=== PATIENT | female | born 1955 | race Caucasian/White ===

== ENCOUNTER → 2017-10-24 | Outpatient (CLI) | payer MEDICARE | END | disposition home or self-care (01) | LOC: PETCFH 13:29 | PROVIDERS: ATTEND Family Medicine | DX: C53.9 Malignant neoplasm of cervix uteri, unspecified (principal); R59.0 Localized enlarged lymph nodes; K76.89 Other specified diseases of liver | CPT/HCPCS: 78815; A9552 ==

== ENCOUNTER → 2017-11-08 | Outpatient (CLI) | payer MEDICARE | END | disposition home or self-care (01) | LOC: ROC 07:24 | PROVIDERS: ATTEND Radiology Radiation Oncology | DX: C53.9 Malignant neoplasm of cervix uteri, unspecified (principal); N95.0 Postmenopausal bleeding | CPT/HCPCS: 99214; G0463 ==

== ENCOUNTER → 2017-11-14 | Outpatient (CLI) | payer MEDICARE | END | disposition home or self-care (01) | LOC: CFH 16:00 | PROVIDERS: ATTEND Specialist | DX: R94.4 Abnormal results of kidney function studies (principal) | CPT/HCPCS: 76770 ==

== ENCOUNTER → 2017-11-15 | Outpatient (CLI) | payer MEDICARE ==
[~2017-11-15] MED LIST: DEXA4TAB66 PO; LIDOCAINE-MPF 2%, 2ML ONE; ONDA4TAB7 PO; TOLT4CAP12 PO
== END | disposition home or self-care (01) ==
LOC: RAD 11:20
PROVIDERS: ATTEND Specialist
DX: Z45.2 Encounter for adjustment and management of vascular access device (principal); C53.9 Malignant neoplasm of cervix uteri, unspecified; Z98.890 Other specified postprocedural states
CPT/HCPCS: 36569; 76937; 77001; C1751; J3490

== ENCOUNTER → 2017-11-27 | Outpatient (CLI) | payer MEDICARE ==
[~2017-11-27] MED LIST changes: +GADOBUTROL 7.5 MMOL/7.5 ML PFS ONE; -LIDOCAINE-MPF 2%, 2ML ONE
== END | disposition home or self-care (01) ==
LOC: RAD 11-12 14:19
PROVIDERS: ATTEND Radiology Radiation Oncology
DX: Z02.9 Encounter for administrative examinations, unspecified (principal)
CPT/HCPCS: A9585

== ENCOUNTER → 2017-12-12 | Outpatient (CLI) | payer MEDICARE ==
[~2017-12-12] MED LIST changes: -GADOBUTROL 7.5 MMOL/7.5 ML PFS ONE; +LOPE2CAP94 PO; +MORP10CA7 PO; +MORP15TA PO
[2017-12-12 15:33] LABS: ALANINE AMINOTRANSFERASE 46 U/L (12-78); ALBUMIN 3.4 g/dL (3.4-5.0); ANION GAP 8 mmol/L (5-15); CALCIUM 8.5 mg/dL (8.5-10.1); CHLORIDE 108 mmol/L (98-107); CREATININE 1.26 mg/dL (0.55-1.02)
[2017-12-12 15:36] LABS: ALKALINE PHOSPHATASE 60 U/L (45-117); BILIRUBIN,TOTAL 1.1 mg/dL (0.2-1.0); TOTAL PROTEIN 6.4 g/dL (6.4-8.2)
[2017-12-12 15:41] LABS: MEAN CORPUSCULAR HEMOGLOBIN 32.5 pg (27.0-34.8); MEAN CORPUSCULAR HGB CONC 35.5 g/dL (32.4-35.8); MEAN CORPUSCULAR VOLUME 91.5 fL (80-100); MEAN PLATELET VOLUME 7.6 fL (7.4-10.4); PLATELET COUNT 163 x10^3/uL (130-400); RED BLOOD COUNT 3.22 x10^6/uL (3.82-5.3); RED CELL DISTRIBUTION WIDTH 13.5 % (9.6-15.2)
[2017-12-12 15:48] LABS: INTERNATIONAL NORMALIZED RATIO 0.99 (0.93-1.1); PROTHROMBIN TIME 10.3 Seconds (9.6-11.5)
[2017-12-12 16:16] LABS: MD YES
[2017-12-12 16:23] LABS: BANDS%(MANUAL) 3 % (0-7); EOS#(MANUAL) 0.03 x10^3/uL (0.0-0.4); EOS% (MANUAL) 1 % (1-7); LYMPH#(MANUAL) 0.26 x10^3/uL (1-3.4); LYMPHS% (MANUAL) 8 % (22-44); MONOS% (MANUAL) 6 % (2-9); MYELOCYTES# (MANUAL) 0.03 x10^3/uL (0-0); MYELOCYTES% (MANUAL) 1 % (0-0); SEG#(MANUAL) 2.67 x10^3/uL (1.8-6.8); SEGS% (MANUAL) 81 % (42-75)
[2017-12-12 16:24] LABS: <RBC MORPHOLOGY> NORMAL
[2017-12-12 16:25] LABS: <PLATELET ESTIMATE> ADEQUATE; <PLT MORPHOLOGY> NORMAL PLT MORPH
== END | disposition home or self-care (01) ==
LOC: STAR 14:22
PROVIDERS: ATTEND Specialist
DX: Z01.818 Encounter for other preprocedural examination (principal); C53.9 Malignant neoplasm of cervix uteri, unspecified; Z87.891 Personal history of nicotine dependence
CPT/HCPCS: 36415; 80053; 85025; 85610; 85730; 93005

== ENCOUNTER 2017-12-16 09:14 | Day surgery (SDC) | payer MEDICARE ==
[2017-12-12 14:55] VITALS: BP 118/83
[~2017-12-16] VITALS: Ht 162.6 cm; Wt 72.2 kg
[2017-12-16] MEDS ORDERED: LACTATED RINGERS 1,000 ML IV SCH (09:57)
[2017-12-16] MEDS ORDERED: BUPIVACAINE/PF-EPI 0.5% 1:200K ONE (09:59)
[2017-12-16] MEDS ORDERED: ACETAMINOPHEN 500 MG TABLET PO ONE (10:00)
[2017-12-16] MEDS ORDERED: ONDANSETRON ODT 8 MG PO ONE (10:00)
[2017-12-16 10:01] VITALS: BP 118/83
[2017-12-16] MEDS ORDERED: ACETAMINOPHEN 500 MG TABLET ONE (10:08)
[2017-12-16] MEDS ORDERED: ONDANSETRON ODT 8 MG ONE (10:09)
[2017-12-16] MEDS ORDERED: hydrALAzine 20 MG/ML, 1ML IV PRN (11:30)
[2017-12-16] MEDS ORDERED: HYDROmorphone 1 MG/ML, 1ML IV PRN (11:30)
[2017-12-16] MEDS ORDERED: EPHEDRINE 50 MG/ML, 1ML IVPush PRN (11:30)
[2017-12-16] MEDS ORDERED: OXYcodone 5 MG/5 ML ORAL.SOL UDC PO PRN (11:30)
[2017-12-16] MEDS ORDERED: DIAZEPAM 5 MG/ML, 2ML IVPush PRN (11:30)
[2017-12-16] MEDS ORDERED: MIDAZOLAM 1 MG/ML, 2ML IV PRN (11:30)
[2017-12-16] MEDS ORDERED: DIPHENHYDRAMINE 50 MG/ML, 1ML IVPush PRN (11:30)
[2017-12-16] MEDS ORDERED: ALBUTEROL SULFATE 2.5 MG/3 ML NPPB PRN (11:30)
[2017-12-16] MEDS ORDERED: FENTANYL PF 100 MCG/2ML IV PRN (11:30)
[2017-12-16] MEDS ORDERED: LORazepam 2 MG/ML, 1ML IVPush PRN (11:30)
[2017-12-16] MEDS ORDERED: KETOROLAC 30 MG/1 ML IV PRN (11:30)
[2017-12-16] MEDS ORDERED: LABETALOL 5MG/ML, 20ML IV PRN (11:30)
[2017-12-16] MEDS ORDERED: MEPERIDINE/PF 25MG/0.5ML IVPush PRN (11:30)
[2017-12-16] MEDS ORDERED: METOPROLOL 1 MG/ML, 5ML IV PRN (11:30)
[2017-12-16] MEDS ORDERED: MORPHINE SULFATE 4 MG/ML, 1ML IVPush PRN (11:30)
[2017-12-16] MEDS ORDERED: PROCHLORPERAZINE 5 MG/ML, 2ML IV PRN (11:30)
[2017-12-16] MEDS ORDERED: PROPOFOL 10 MG/ML, 20ML ONE (15:53)
== END 2017-12-16 14:15 | disposition home or self-care (01) ==
LOC: OUT 09:14
PROVIDERS: ATTEND Specialist
DX: C53.9 Malignant neoplasm of cervix uteri, unspecified (principal); Z98.51 Tubal ligation status; Z98.890 Other specified postprocedural states; Z72.89 Other problems related to lifestyle; Z87.891 Personal history of nicotine dependence
CPT/HCPCS: 57156; J2250; J2704; J3010; J7120

== ENCOUNTER 2017-12-25 10:23 | Emergency (ER) | payer MEDICARE ==
[~2017-12-25] VITALS: Ht 165.1 cm; Wt 70.8 kg
[2017-12-25] MEDS ORDERED: SODIUM CHLORIDE 0.9% 1,000 ML IV ONE (10:54)
[2017-12-25] MEDS ORDERED: SODIUM CHLORIDE 0.9% 1,000ML IVBOLUS ONE ×2 (11:00→13:00)
[2017-12-25] MEDS ORDERED: SODIUM CHLORIDE FLUSH 10ML SYR IVF ONE (11:00)
[2017-12-25] MEDS ORDERED: ONDANSETRON 2MG/ML, 2ML IVPush ONE (11:00)
[2017-12-25] MEDS ORDERED: MORPHINE SULFATE 4 MG/ML, 1ML IVPush PRN (11:00)
[2017-12-25 11:18] LABS: BASOPHILS # (AUTO) 0.01 x10^3/uL (0-0.1); BASOPHILS % (AUTO) 0 % (0-1); EOSINOPHILS # (AUTO) 0.03 x10^3/uL (0-0.4); EOSINOPHILS % (AUTO) 1 % (1-7); LYMPHOCYTES # (AUTO) 0.39 x10^3/uL (1-3.4); LYMPHOCYTES % (AUTO) 11 % (22-44); MD NO; MEAN CORPUSCULAR HEMOGLOBIN 31.1 pg (27.0-34.8); MEAN CORPUSCULAR HGB CONC 34.4 g/dL (32.4-35.8); MEAN CORPUSCULAR VOLUME 90.3 fL (80-100); MEAN PLATELET VOLUME 7.6 fL (7.4-10.4); MONOCYTES # (AUTO) 0.25 x10^3/uL (0.2-0.8); MONOCYTES % (AUTO) 7 % (2-9); NEUTROPHILS # (AUTO) 2.89 x10^3/uL (1.8-6.8); NEUTROPHILS % (AUTO) 81 % (42-75); PLATELET COUNT 435 x10^3/uL (130-400); RED BLOOD COUNT 3.37 x10^6/uL (3.82-5.3); RED CELL DISTRIBUTION WIDTH 13.9 % (9.6-15.2)
[2017-12-25] MEDS ORDERED: ONDANSETRON 2MG/ML, 2ML ONE (11:21)
[2017-12-25] MEDS ORDERED: MORPHINE SULFATE 4 MG/ML, 1ML ONE (11:21)
[2017-12-25 11:29] LABS: ALANINE AMINOTRANSFERASE 38 U/L (12-78); ALBUMIN 3.1 g/dL (3.4-5.0); ANION GAP 11 mmol/L (5-15); CALCIUM 9.7 mg/dL (8.5-10.1); CHLORIDE 103 mmol/L (98-107)
[2017-12-25 11:32] LABS: ALKALINE PHOSPHATASE 77 U/L (45-117); BILIRUBIN,TOTAL 0.7 mg/dL (0.2-1.0); CREATININE 1.31 mg/dL (0.55-1.02); TOTAL PROTEIN 7.5 g/dL (6.4-8.2)
[2017-12-25 11:54] LABS: TROPONIN I < 0.015 ng/mL (0.000-0.045)
[2017-12-25] MEDS ORDERED: OMNIPAQUE 350 MG/ML, 100ML BOTTLE ONE (11:59)
[2017-12-25 12:21] VITALS: BP 123/100
[2017-12-25 13:20] LABS: MICROSCOPIC NOT IND
[2017-12-25 13:25] LABS: CULTURE INDICATED? NO
== END 2017-12-25 14:24 | disposition home or self-care (01) ==
LOC: ED 12:26
DX: E87.2 Acidosis (principal); C53.9 Malignant neoplasm of cervix uteri, unspecified; M54.5 Low back pain; Z51.0 Encounter for antineoplastic radiation therapy; K52.9 Noninfective gastroenteritis and colitis, unspecified; E86.0 Dehydration; E86.9 Volume depletion, unspecified; Z87.891 Personal history of nicotine dependence
CPT/HCPCS: 36415; 74177; 80053; 81003; 83605; 83690; 84484; 85025; 87040; 93005; 96361; 96374; 96375; 99285; J2405; J7030; Q9967

== ENCOUNTER → 2017-12-31 | Outpatient (CLI) | payer MEDICARE | END | disposition home or self-care (01) | LOC: ROC 07:07 | PROVIDERS: ATTEND Radiology Radiation Oncology | DX: Z02.9 Encounter for administrative examinations, unspecified (principal) ==

== ENCOUNTER 2018-02-16 09:09 | Inpatient (IN) | payer MEDICARE ==
[~2018-02-16] VITALS: Ht 162.6 cm; Wt 71.2 kg
[2018-02-16] MEDS ORDERED: SODIUM CHLORIDE FLUSH 10ML SYR IVF ONE (09:30)
[2018-02-16] MEDS ORDERED: HYDROmorphone 2 MG/ML, 1ML ONE (10:09)
[2018-02-16] MEDS ORDERED: DICYCLOMINE 10 MG/ML, 2ML ONE (10:09)
[2018-02-16 10:13] LABS: CLOSTRIDIUM DIFFICILE ANTIGEN NEGATIVE; CLOSTRIDIUM DIFFICILE TOXIN NEGATIVE (Negative)
[2018-02-16] MEDS: HYDROmorphone 2 MG/ML, 1ML IVPush PRN ×2 (10:17→10:51)
[2018-02-16 10:30] LABS: BASOPHILS # (AUTO) 0.03 x10^3/uL (0-0.1); BASOPHILS % (AUTO) 0 % (0-1); EOSINOPHILS # (AUTO) 0.14 x10^3/uL (0-0.4); EOSINOPHILS % (AUTO) 2 % (1-7); LYMPHOCYTES # (AUTO) 0.52 x10^3/uL (1-3.4); LYMPHOCYTES % (AUTO) 6 % (22-44); MD NO; MEAN CORPUSCULAR HEMOGLOBIN 31.8 pg (27.0-34.8); MEAN CORPUSCULAR HGB CONC 33.8 g/dL (32.4-35.8); MEAN CORPUSCULAR VOLUME 94.2 fL (80-100); MEAN PLATELET VOLUME 8.6 fL (7.4-10.4); MONOCYTES % (AUTO) 5 % (2-9); NEUTROPHILS # (AUTO) 7.03 x10^3/uL (1.8-6.8); NEUTROPHILS % (AUTO) 87 % (42-75); PLATELET COUNT 248 x10^3/uL (130-400); RED BLOOD COUNT 3.87 x10^6/uL (3.82-5.3); RED CELL DISTRIBUTION WIDTH 14.6 % (9.6-15.2)
[2018-02-16] MEDS ORDERED: DICYCLOMINE 10 MG/ML, 2ML IM ONE (10:30)
[2018-02-16 10:34] LABS: ALANINE AMINOTRANSFERASE 19 U/L (12-78); ALBUMIN 4.2 g/dL (3.4-5.0); ANION GAP 11 mmol/L (5-15); CALCIUM 9.9 mg/dL (8.5-10.1); CHLORIDE 106 mmol/L (98-107); CREATININE 1.26 mg/dL (0.55-1.02)
[2018-02-16 10:36] LABS: ALKALINE PHOSPHATASE 57 U/L (45-117); TOTAL PROTEIN 7.3 g/dL (6.4-8.2)
[2018-02-16 11:30] LABS: CRYPTOSPORIDIUM ANTIGEN Negative (Negative)
[2018-02-16] MEDS ORDERED: AMPICILLIN/SULBACTAM 3 GM in SODIUM CHLORIDE 0.9% 100 ML IV ONE (11:30)
[2018-02-16] MEDS ORDERED: HYDROmorphone 2 MG/ML, 1ML IVPush PRN (12:30)
[2018-02-16] MEDS ORDERED: METOCLOPRAMIDE 5 MG/ML, 2ML IVPush PRN (12:30)
[2018-02-16] MEDS ORDERED: LOPERAMIDE 2 MG CAPSULE PO PRN (12:30)
[2018-02-16] MEDS ORDERED: PROMETHAZINE 25 MG/ML, 1ML IM PRN (12:30)
[2018-02-16] MEDS: ENOXAPARIN 40 MG/0.4 ML SQ SCH (12:30)
[2018-02-16] MEDS ORDERED: ONDANSETRON ODT 4 MG PO PRN (12:30)
[2018-02-16] MEDS ORDERED: ONDANSETRON 2MG/ML, 2ML IVPush PRN (12:30)
[2018-02-16 12:41] VITALS: BP 133/81
[2018-02-16] MEDS: SODIUM CHLORIDE 0.9% 1,000 ML IV SCH ×2 (13:33→19:23)
[2018-02-16 18:44] VITALS: BP 114/70
[2018-02-17 01:13] VITALS: BP 132/73
[2018-02-17] MEDS: SODIUM CHLORIDE 0.9% 1,000 ML IV SCH ×3 (01:23→12:55)
[2018-02-17] MEDS: HYDROmorphone 2 MG/ML, 1ML IVPush PRN ×3 (01:23→07:31)
[2018-02-17 05:42] LABS: BASOPHILS % (AUTO) 0 % (0-1); EOSINOPHILS % (AUTO) 0 % (1-7); LYMPHOCYTES # (AUTO) 0.37 x10^3/uL (1-3.4); LYMPHOCYTES % (AUTO) 6 % (22-44); MD NO; MEAN CORPUSCULAR HEMOGLOBIN 33.3 pg (27.0-34.8); MEAN CORPUSCULAR HGB CONC 34.7 g/dL (32.4-35.8); MONOCYTES # (AUTO) 0.53 x10^3/uL (0.2-0.8); MONOCYTES % (AUTO) 8 % (2-9); NEUTROPHILS # (AUTO) 5.37 x10^3/uL (1.8-6.8); NEUTROPHILS % (AUTO) 86 % (42-75); PLATELET COUNT 220 x10^3/uL (130-400); RED BLOOD COUNT 3.19 x10^6/uL (3.82-5.3); RED CELL DISTRIBUTION WIDTH 15.1 % (9.6-15.2)
[2018-02-17 05:43] LABS: ANION GAP 14 mmol/L (5-15); CALCIUM 8.3 mg/dL (8.5-10.1); CHLORIDE 116 mmol/L (98-107)
[2018-02-17 05:48] LABS: CHOL/HDL RATIO 3.2; CHOLESTEROL, TOTAL 174 mg/dL (140-239); CREATININE 0.86 mg/dL (0.55-1.02); HDL CHOL % 31 % (28-40); HDL CHOLESTEROL (DIRECT) 54 mg/dL (40-60); LDL CHOLESTEROL,CALCULATED 106 mg/dL (54-169); TRIGLYCERIDES 68 mg/dL (50-200); VLDL CHOLESTEROL 14 mg/dL (0-25)
[2018-02-17 07:06] VITALS: BP 125/80
[2018-02-17] MEDS: morphine SULFATE 10 MG/ML, 1ML IVPush PRN ×3 (09:32→12:55)
[2018-02-17 12:44] VITALS: BP 133/67
[2018-02-17] MEDS: ENOXAPARIN 40 MG/0.4 ML SQ SCH (12:55)
[2018-02-17] MEDS: morphine SULFATE 15 MG TAB.IR PO PRN (16:53)
[2018-02-17 20:20] VITALS: BP 133/79
[2018-02-17] MEDS ORDERED: SODIUM CHLORIDE FLUSH 10ML SYR IVF SCH (21:00)
[2018-02-18 02:20] VITALS: BP 116/67
[2018-02-18 07:11] VITALS: BP 123/78
[2018-02-18] MEDS ORDERED: METR500T PO (08:02)
[2018-02-18] MEDS ORDERED: CEFD300C37 PO (08:02)
[2018-02-18] MEDS: morphine SULFATE 15 MG TAB.IR PO PRN (08:26)
== END 2018-02-18 09:00 | disposition home or self-care (01) | DRG 393 ==
LOC: ED 11:18 → EDIP 11:37 → 4NOR 12:30 → DCLOUNGE 02-18 08:51
PROVIDERS: ADMIT Internal Medicine; ATTEND Family Medicine
DX: K52.0 Gastroenteritis and colitis due to radiation (principal); K85.90 Acute pancreatitis without necrosis or infection, unspecified; N17.9 Acute kidney failure, unspecified; Y84.2 Radiological procedure and radiotherapy as the cause of abnormal reaction of the patient, or of later complication, without mention of misadventure at the time of the procedure; I10 Essential (primary) hypertension; E87.6 Hypokalemia; E83.59 Other disorders of calcium metabolism; M79.7 Fibromyalgia; N29 Other disorders of kidney and ureter in diseases classified elsewhere; G89.29 Other chronic pain; Z87.891 Personal history of nicotine dependence; Z85.41 Personal history of malignant neoplasm of cervix uteri; Z92.3 Personal history of irradiation; Z98.51 Tubal ligation status
CPT/HCPCS: 36415; 74176; 80048; 80053; 80061; 83605; 83690; 83735; 84100; 85025; 87040; 87046; 87252; 87324; 87328; 87329; 87427; 89055; G0378; J0295; J1170; J1650; J2405; Q0162; J0500; J2270; J7030

== ENCOUNTER → 2018-05-16 | Outpatient (CLI) | payer MEDICARE ==
[~2018-05-16] MED LIST changes: +CEFD300C37 PO; +METR500T PO
== END | disposition home or self-care (01) ==
LOC: ROC 07:23
PROVIDERS: ATTEND Radiology Radiation Oncology
DX: Z08 Encounter for follow-up examination after completed treatment for malignant neoplasm (principal); Z85.41 Personal history of malignant neoplasm of cervix uteri
CPT/HCPCS: 99213; G0463

== ENCOUNTER → 2018-05-26 | Outpatient (CLI) | payer MEDICARE ==
[~2018-05-26] MED LIST changes: +AMIT10TA PO
== END | disposition home or self-care (01) ==
LOC: RAD 08:25
PROVIDERS: ATTEND Specialist
DX: Z45.2 Encounter for adjustment and management of vascular access device (principal); C53.9 Malignant neoplasm of cervix uteri, unspecified
CPT/HCPCS: 36573; C1751

== ENCOUNTER 2018-06-19 10:33 | Emergency (ER) | payer MEDICARE ==
[~2018-06-19] VITALS: Ht 162.6 cm; Wt 63.6 kg
[2018-06-19] MEDS ORDERED: SODIUM CHLORIDE 0.9% 1,000 ML IV ONE (10:55)
[2018-06-19] MEDS ORDERED: SODIUM CHLORIDE FLUSH 10ML SYR IVF ONE (11:00)
[2018-06-19] MEDS ORDERED: SODIUM CHLORIDE 0.9% 1,000ML IVBOLUS ONE (11:00)
[2018-06-19] MEDS ORDERED: HYDROmorphone 2 MG/ML, 1ML IVPush PRN (11:00)
[2018-06-19] MEDS ORDERED: ONDANSETRON 2MG/ML, 2ML IVPush ONE (11:00)
[2018-06-19] MEDS ORDERED: ONDANSETRON 2MG/ML, 2ML ONE (11:01)
[2018-06-19] MEDS ORDERED: HYDROmorphone 1 MG/ML, 1ML AMP ONE ×2 (11:01→12:42)
[2018-06-19 11:47] LABS: BASOPHILS % (AUTO) 0 % (0-1); EOSINOPHILS # (AUTO) 0.09 x10^3/uL (0-0.4); EOSINOPHILS % (AUTO) 2 % (1-7); LYMPHOCYTES # (AUTO) 0.13 x10^3/uL (1-3.4); LYMPHOCYTES % (AUTO) 3 % (22-44); MD NO; MEAN CORPUSCULAR HEMOGLOBIN 30.4 pg (27.0-34.8); MEAN CORPUSCULAR HGB CONC 34.5 g/dL (32.4-35.8); MEAN CORPUSCULAR VOLUME 88.1 fL (80-100); MEAN PLATELET VOLUME 7.9 fL (7.4-10.4); MONOCYTES # (AUTO) 0.26 x10^3/uL (0.2-0.8); MONOCYTES % (AUTO) 7 % (2-9); NEUTROPHILS # (AUTO) 3.45 x10^3/uL (1.8-6.8); NEUTROPHILS % (AUTO) 88 % (42-75); PLATELET COUNT 259 x10^3/uL (130-400); RED BLOOD COUNT 3.67 x10^6/uL (3.82-5.3)
[2018-06-19 11:49] LABS: ALBUMIN 3.8 g/dL (3.4-5.0); ANION GAP 9 mmol/L (5-15); CALCIUM 9.2 mg/dL (8.5-10.1); CHLORIDE 101 mmol/L (98-107)
[2018-06-19 11:51] LABS: ALANINE AMINOTRANSFERASE 17 U/L (12-78); CREATININE 1.13 mg/dL (0.55-1.02); TOTAL PROTEIN 6.8 g/dL (6.4-8.2)
[2018-06-19 11:52] LABS: ALKALINE PHOSPHATASE 53 U/L (45-117)
[2018-06-19] MEDS ORDERED: OMNIPAQUE 350 MG/ML, 100ML BOTTLE ONE (12:15)
[2018-06-19 12:49] VITALS: BP 152/85
--- NOTE | 2018-06-19 13:15 | NUR ---
BS REPORT FROM DANA MCCARTHY. PT RATING PAIN AT 10/10 WITH 2ND DOSE OF DILAUDID GIVEN AT TIME OF REPORT. FOLLOWING, PT ABLE TO AMBULATE TO BR WITH STEADY GAIT. URINE COLLECTED/SENT TO LAB. PT STATING SHE'S READY TO GO HOME. ERP NOTIFIED. CALL LIGHT WITHIN REACH, FAMILY AT BS.
[2018-06-19 13:20] LABS: MICROSCOPIC NOT IND
[2018-06-19 13:32] LABS: CULTURE INDICATED? NO
--- NOTE | 2018-06-19 13:33 | NUR ---
PT GIVEN DISCHARGE INSTRUCTS. CAPS REPLACED ON PICC LINE. PT AMBULATES OUT WITH SON.
== END 2018-06-19 13:35 | disposition home or self-care (01) ==
LOC: ED 13:20
DX: K59.00 Constipation, unspecified (principal); C55 Malignant neoplasm of uterus, part unspecified; G89.29 Other chronic pain
CPT/HCPCS: 36415; 74177; 80053; 81003; 83605; 83690; 85025; 93005; 96361; 96374; 96375; 99284; J1170; J2405; J7030; Q9967

== ENCOUNTER 2018-07-17 07:20 | Outpatient (CLI) | payer MEDICARE | END 2018-07-17 23:59 | disposition home or self-care (01) | LOC: ROC 07:20 | PROVIDERS: ATTEND Radiology Radiation Oncology | DX: Z02.9 Encounter for administrative examinations, unspecified (principal) ==

== ENCOUNTER 2018-08-07 07:36 | Outpatient (CLI) | payer MEDICARE | END 2018-08-07 23:59 | disposition home or self-care (01) | LOC: ROC 07:36 | PROVIDERS: ATTEND Radiology Radiation Oncology | DX: Z08 Encounter for follow-up examination after completed treatment for malignant neoplasm (principal); Z85.41 Personal history of malignant neoplasm of cervix uteri | CPT/HCPCS: 99212; G0463 ==

== ENCOUNTER → 2018-08-14 | Outpatient (CLI) | payer MEDICARE | END | disposition home or self-care (01) | LOC: ROC 07:08 | PROVIDERS: ATTEND Radiology Radiation Oncology | DX: C53.9 Malignant neoplasm of cervix uteri, unspecified (principal) | CPT/HCPCS: 99212; G0463 ==

== ENCOUNTER → 2018-09-12 | Outpatient (CLI) | payer MEDICARE | END | disposition home or self-care (01) | LOC: ROC 07:36 | PROVIDERS: ATTEND Radiology Radiation Oncology | DX: C53.9 Malignant neoplasm of cervix uteri, unspecified (principal); Z88.5 Allergy status to narcotic agent | CPT/HCPCS: 99213; G0463 ==

== ENCOUNTER → 2018-09-22 | Outpatient (CLI) | payer MEDICARE | END | disposition home or self-care (01) | LOC: CFH 07:11 | PROVIDERS: ATTEND Radiology Radiation Oncology | DX: C53.8 Malignant neoplasm of overlapping sites of cervix uteri (principal); R22.41 Localized swelling, mass and lump, right lower limb ==

== ENCOUNTER 2018-10-16 07:05 | Outpatient (CLI) | payer MEDICARE | END 2018-10-16 23:59 | disposition home or self-care (01) | LOC: ROC 07:05 | PROVIDERS: ATTEND Radiology Radiation Oncology | DX: C53.8 Malignant neoplasm of overlapping sites of cervix uteri (principal) | CPT/HCPCS: 99213; G0463 ==

== ENCOUNTER 2019-01-12 12:17 | Outpatient (CLI) | payer MEDICARE ==
[~2019-01-12 12:17] MED LIST changes: +LOPE-114 PO; -LOPE2CAP94 PO
[2019-01-12] MEDS ORDERED: OMNIPAQUE 350 MG/ML, 100ML BOTTLE ONE (15:37)
== END 2019-01-12 23:59 | disposition home or self-care (01) ==
LOC: RAD 12:17
PROVIDERS: ATTEND Radiology Radiation Oncology
DX: C76.0 Malignant neoplasm of head, face and neck (principal)
CPT/HCPCS: 74177; Q9967

== ENCOUNTER 2019-02-23 07:39 | Outpatient (CLI) | payer MEDICARE | END 2019-02-23 23:59 | disposition home or self-care (01) | LOC: CFH 07:39 | PROVIDERS: ATTEND Specialist | DX: Z12.31 Encounter for screening mammogram for malignant neoplasm of breast (principal); M89.9 Disorder of bone, unspecified; N95.9 Unspecified menopausal and perimenopausal disorder; M81.0 Age-related osteoporosis without current pathological fracture | CPT/HCPCS: 77063; 77067; 77080 ==

== ENCOUNTER → 2019-03-23 | Outpatient (CLI) | payer MEDICARE | END | disposition home or self-care (01) | LOC: CFH 07:40 | PROVIDERS: ATTEND Nurse Practitioner Family | DX: M51.36 Other intervertebral disc degeneration, lumbar region (principal); M41.86 Other forms of scoliosis, lumbar region | CPT/HCPCS: 72110 ==

== ENCOUNTER 2019-05-21 07:12 | Outpatient (CLI) | payer MEDICARE | END 2019-05-21 23:59 | disposition home or self-care (01) | LOC: ROC 07:12 | PROVIDERS: ATTEND Radiology Radiation Oncology | DX: Z02.9 Encounter for administrative examinations, unspecified (principal) ==

== ENCOUNTER 2019-05-22 07:06 | Outpatient (CLI) | payer MEDICARE | END 2019-05-22 23:59 | disposition home or self-care (01) | LOC: ROC 07:06 | PROVIDERS: ATTEND Radiology Radiation Oncology | DX: C53.8 Malignant neoplasm of overlapping sites of cervix uteri (principal) | CPT/HCPCS: 99212; G0463 ==

== ENCOUNTER → 2019-07-21 | Outpatient (CLI) | payer MEDICARE ==
[~2019-07-21] MED LIST changes: +OMNIPAQUE 350 MG/ML, 100ML BOTTLE ONE
== END | disposition home or self-care (01) ==
LOC: CFH 10:36
PROVIDERS: ATTEND Nurse Practitioner Acute Care
DX: C53.9 Malignant neoplasm of cervix uteri, unspecified (principal); C78.6 Secondary malignant neoplasm of retroperitoneum and peritoneum; R16.0 Hepatomegaly, not elsewhere classified; D18.09 Hemangioma of other sites; I70.0 Atherosclerosis of aorta; M41.86 Other forms of scoliosis, lumbar region; M47.816 Spondylosis without myelopathy or radiculopathy, lumbar region
CPT/HCPCS: 74177; Q9967

== ENCOUNTER 2019-08-31 08:34 | Outpatient (CLI) | payer MEDICARE ==
[~2019-08-31 08:34] MED LIST changes: -OMNIPAQUE 350 MG/ML, 100ML BOTTLE ONE
[2019-08-31] MEDS ORDERED: OMNIPAQUE 350 MG/ML, 100ML BOTTLE ONE (14:50)
== END 2019-08-31 23:59 | disposition home or self-care (01) ==
LOC: CFH 08:34
PROVIDERS: ATTEND Obstetrics & Gynecology
DX: C53.9 Malignant neoplasm of cervix uteri, unspecified (principal); C78.6 Secondary malignant neoplasm of retroperitoneum and peritoneum
CPT/HCPCS: 74177; 82565; Q9967

== ENCOUNTER → 2019-09-16 | Outpatient (CLI) | payer MEDICARE ==
[~2019-09-16] MED LIST changes: +AMIT50TA PO; +GABA600T7 PO
== END | disposition home or self-care (01) ==
LOC: PETCFH 07:09
PROVIDERS: ATTEND Obstetrics & Gynecology
DX: C53.9 Malignant neoplasm of cervix uteri, unspecified (principal); C78.6 Secondary malignant neoplasm of retroperitoneum and peritoneum; J98.11 Atelectasis
CPT/HCPCS: 78815; A9552

== ENCOUNTER → 2019-09-18 | Outpatient (CLI) | payer MEDICARE | END | disposition home or self-care (01) | LOC: STAR 09:06 | PROVIDERS: ATTEND Internal Medicine Geriatric Medicine | DX: Z01.818 Encounter for other preprocedural examination (principal); K62.5 Hemorrhage of anus and rectum | CPT/HCPCS: 93005 ==

== ENCOUNTER → 2019-12-29 | Outpatient (CLI) | payer MEDICARE ==
[~2019-12-29] MED LIST changes: +OMNIPAQUE 350 MG/ML, 100ML BOTTLE ONE
== END | disposition home or self-care (01) ==
LOC: CFH 10:41
PROVIDERS: ATTEND Obstetrics & Gynecology
DX: C78.6 Secondary malignant neoplasm of retroperitoneum and peritoneum (principal); C53.9 Malignant neoplasm of cervix uteri, unspecified; D42.9 Neoplasm of uncertain behavior of meninges, unspecified
CPT/HCPCS: 71260; 74177; Q9967

== ENCOUNTER → 2020-02-24 | Outpatient (CLI) | payer MEDICARE ==
[~2020-02-24] MED LIST changes: +FENTANYL PF 100 MCG/2ML ONE; +MIDAZOLAM 1 MG/ML, 5ML ONE; -OMNIPAQUE 350 MG/ML, 100ML BOTTLE ONE
== END | disposition home or self-care (01) ==
LOC: RAD 13:14
PROVIDERS: ATTEND Nurse Practitioner Family
DX: M48.061 Spinal stenosis, lumbar region without neurogenic claudication (principal); M51.36 Other intervertebral disc degeneration, lumbar region; M41.86 Other forms of scoliosis, lumbar region; M43.16 Spondylolisthesis, lumbar region; M25.78 Osteophyte, vertebrae
CPT/HCPCS: 72148; 99156; 99157; J2250; J3010

== ENCOUNTER → 2020-03-29 | Outpatient (CLI) | payer MEDICARE ==
[~2020-03-29] MED LIST changes: -FENTANYL PF 100 MCG/2ML ONE; -MIDAZOLAM 1 MG/ML, 5ML ONE; +OMNIPAQUE 350 MG/ML, 100ML BOTTLE ONE
== END | disposition home or self-care (01) ==
LOC: CFH 09:34
PROVIDERS: ATTEND Nurse Practitioner Acute Care
DX: C78.6 Secondary malignant neoplasm of retroperitoneum and peritoneum (principal); C53.9 Malignant neoplasm of cervix uteri, unspecified; K76.0 Fatty (change of) liver, not elsewhere classified; R16.0 Hepatomegaly, not elsewhere classified; R59.0 Localized enlarged lymph nodes; J98.11 Atelectasis; I70.0 Atherosclerosis of aorta
CPT/HCPCS: 71260; 74177; Q9967

== ENCOUNTER → 2020-06-15 | Outpatient (CLI) | payer MEDICARE ==
[~2020-06-15] MED LIST changes: -OMNIPAQUE 350 MG/ML, 100ML BOTTLE ONE
== END | disposition home or self-care (01) ==
LOC: PETCFH 07:17
PROVIDERS: ATTEND Obstetrics & Gynecology
DX: C78.6 Secondary malignant neoplasm of retroperitoneum and peritoneum (principal); C53.9 Malignant neoplasm of cervix uteri, unspecified; C77.2 Secondary and unspecified malignant neoplasm of intra-abdominal lymph nodes; B02.8 Zoster with other complications; J98.11 Atelectasis; R59.0 Localized enlarged lymph nodes
CPT/HCPCS: 78815; A9552

== ENCOUNTER → 2020-07-26 | Outpatient (CLI) | payer MEDICARE ==
[~2020-07-26] VITALS: Ht 162.6 cm; Wt 75.0 kg
== END | disposition home or self-care (01) ==
LOC: STAR 08:00 → EDSTATUS 07-29 12:30
PROVIDERS: ATTEND Internal Medicine
DX: U07.1 COVID-19 (principal); Z01.818 Encounter for other preprocedural examination; R91.8 Other nonspecific abnormal finding of lung field; I21.3 ST elevation (STEMI) myocardial infarction of unspecified site
CPT/HCPCS: 93005; U0003

== ENCOUNTER 2020-12-22 10:48 | Day surgery (SDC) | payer MEDICARE ==
[~2020-12-22] VITALS: Ht 162.6 cm; Wt 76.2 kg
[2020-12-22 11:32] VITALS: BP 153/104
== END 2020-12-22 16:21 | disposition home or self-care (01) ==
LOC: OUT 10:48 → EDSTATUS 12:45 → OUT 16:21
PROVIDERS: ATTEND Registered Nurse
DX: M50.30 Other cervical disc degeneration, unspecified cervical region (principal); M48.02 Spinal stenosis, cervical region; M54.16 Radiculopathy, lumbar region; M54.14 Radiculopathy, thoracic region; M48.061 Spinal stenosis, lumbar region without neurogenic claudication; M41.86 Other forms of scoliosis, lumbar region; N13.30 Unspecified hydronephrosis; Z85.41 Personal history of malignant neoplasm of cervix uteri
CPT/HCPCS: 72156; 72157; 72158; 99156; 99157; A9575; J2250; J3010